=== PATIENT | female | born 1930 | race Caucasian/White ===

== ENCOUNTER → 2017-05-02 | Outpatient (CLI) | payer MEDICARE, OTHER ==
[~2017-05-02] MED LIST: AMLODIPINE BESY10 MG PO; DETROL PO; PRAVACHOL80 MG PO; TEKTURNA150 MG PO; ZETIA PO
--- NOTE | ~2017-05-02 | US5 ---
[facility] A Service of [facility] & [facility] RADIOLOGY TEXT RESULTS PATIENT: MARYLU NÚÑEZ LOCATION: [facility] : 30 UNIT #: [id number] AGE: [address]: Jareth Dunn MD SEX: F ORDER DR: [id number] [facility] [address] [place], [place] [address] [id number] O MR#: [id number] Acc #: [id number] NAME: MARYLU NÚÑEZ : 1930 SEX: F STUDY DATE/TIME: 05/02/2017 9:17 UNIT: [facility] ROOM: STUDY DESCRIPTION: US Abdominal Complete Attending Physician: Jareth Dunn M.D. Ordering Physician: Jareth Dunn M.D. Primary Care Physician: Jareth Dunn M.D. MEDICAL IMAGING REPORT This report is preliminary unless electronic signature is present EXAM Complete abdominal ultrasound 05/02/2017 HISTORY Post-prandial abdominal pain for 1 month. Pain greatest in left upper quadrant. Additional history of diabetes. COMPARISON STUDIES None. FINDINGS Pancreatic tail and head are partially obscured by bowel gas but the visualized pancreas appears unremarkable. Pancreatic duct caliber is within normal limits measuring 2 mm. A simple cyst is demonstrated along the subcapsular margin of the right hepatic lobe measuring 2.2 cm. The liver demonstrates a somewhat coarsened echotexture with diminished acoustic transmission which may reflect changes of mild hepatic steatosis. Liver size is within normal limits, 17 cm in the sagittal plane. Intrahepatic IVC demonstrates normal color flow. Gallbladder demonstrates no abnormal wall thickening or pericholecystic fluid. There is some layering debris dependently within the gallbladder fundus, which may represent tiny non-shadowing stones or sludge. The right kidney measures 10.5 cm in length, with extensive cortical thinning, greatest in the lower pole. Two cysts are seen within the right kidney, 1 in the upper pole measuring up to 3.4 cm and the other in the lower pole measuring about 4.5 cm. Common bile duct caliber is normal, 4 mm. No intrahepatic or biliary ductal dilatation is seen. Abdominal aortic caliber is within normal [facility] A Service of [facility] & [facility] RADIOLOGY TEXT RESULTS PATIENT: MARYLU NÚÑEZ LOCATION: [facility] : 30 UNIT #: [id number] AGE: [address]: Jareth Dunn MD SEX: F ORDER DR: marco without aneurysm, measuring up to 2.4 cm in its mid-segment. Color spectral Doppler flow is documented within the abdominal aorta. The left kidney measures 10.8 cm in length with multifocal areas of cortical thinning and scarring. There is a rounded ISOechoic focus within the left mid-kidney. It is unclear whether this represents residual preserved parenchyma or a solid renal neoplasm. It measures 3.8 x 2.8 x 3 cm. A cyst within the left lower renal pole measures up to 4.7 cm. Another cyst adjacent to it measures 2 cm. Spleen size is within normal limits, 8.7 cm. No ascites is identified. IMPRESSION 1. Rounded echogenic solid-appearing lesion within the left mid-kidney measuring up to 3.8 x 2.8 x 3 cm. It is unclear whether this represents preservation of the patient's normal parenchyma on background cortical atrophy, but solid renal mass cannot be excluded. Consider correlation to MRI abdomen with and without contrast renal mass protocol for further evaluation. 2. There is bilateral renal cortical thinning and areas of cortical scarring, consistent with the appearance of chronic medical renal disease. 3. Bilateral renal cysts. 4. Small quantity echogenic sludge versus gallstones without evidence of cholecystitis or abnormal biliary dilation. 5. Simple hepatic cyst. Features of mild background hepatic steatosis. 6. Portions of the pancreas obscured by bowel gas but the visualized pancreas appears normal. Dictated by... Melvina Alston M.D. THIS IS AN ELECTRONICALLY VERIFIED REPORT Melvina Alston M.D. at 05/03/2017 12:10 PM JERRICA/kiki TD: 05/02/2017 16:39 JOB #: [id number] MEDICAL IMAGING REPORT Page 1 of 1 COPY
--- NOTE | ~2017-05-02 | BD1 ---
[facility] A Service of [facility] & [facility] RADIOLOGY TEXT RESULTS PATIENT: MARYLU NÚÑEZ LOCATION: [facility] : 30 UNIT #: [id number] AGE: [address]: Jareth Dunn MD SEX: F ORDER DR: [id number] [facility] [address] [place], [place] [address] [id number] O MR#: [id number] #: [id number] NAME: MARYLU NÚÑEZ : 1930 SEX: F STUDY DATE/TIME: 05/02/2017 9:12 UNIT: [facility] ROOM: STUDY DESCRIPTION: BD Dexa Bone Dens 1+ Site Attending Physician: Jareth Dunn M.D. Ordering Physician: Jareth Dunn M.D. Primary Care Physician: Jareth Dunn M.D. MEDICAL IMAGING REPORT This report is preliminary unless electronic signature is present EXAM DEXA scan 05/02/2017 HISTORY Status post menopause with no hormone replacement therapy. Removal of 1 ovary. Osteopenia. Arthritis and diabetes. Hypertension with blood pressure medication for 20 years. FINDINGS Bone mineral density in the lumbar spine from L1-L4 was 0.801 g/cm2 which is 2.2 standard deviations below the mean when compared to young adult reference population which is characteristic of osteopenia. Bone mineral density in the left femoral neck was 0.639 g/cm2 which is 1.9 standard deviations below the mean when compared to the young adult reference population which is characteristic of osteopenia. IMPRESSION Bone mineral density in the lumbar spine and left hip characteristic of osteopenia. Dictated by... Gunnar Callahan M.D. THIS IS AN ELECTRONICALLY VERIFIED REPORT Gunnar Callahan M.D. at 05/03/2017 7:28 AM JORDAN/kusum TD: 05/02/2017 11:44 JOB #: [id number] MEDICAL IMAGING REPORT Page 1 of 1 COPY
== END | disposition home or self-care (01) ==
LOC: CWCC 08:47
DX: Z13.820 Encounter for screening for osteoporosis (principal); Z78.0 Asymptomatic menopausal state; Z96.652 Presence of left artificial knee joint; N28.89 Other specified disorders of kidney and ureter; N31.9 Neuromuscular dysfunction of bladder, unspecified; M85.89 Other specified disorders of bone density and structure, multiple sites; N28.1 Cyst of kidney, acquired; K82.9 Disease of gallbladder, unspecified; K76.89 Other specified diseases of liver; K76.0 Fatty (change of) liver, not elsewhere classified
CPT/HCPCS: 76700; 77080

== ENCOUNTER → 2017-05-14 | Outpatient (CLI) | payer MEDICARE, OTHER ==
--- NOTE | ~2017-05-14 | MR2 ---
[facility] A Service of [facility] RADIOLOGY TEXT RESULTS PATIENT: MARYLU NÚÑEZ LOCATION: [facility] ACC #: [id number] : 30 UNIT #: [id number] AGE: [address]: Jareth Dunn MD SEX: F ORDER DR: [id number] [facility] [address] [place], [place] [address] [id number] O MR#: [id number] #: [id number] NAME: MARYLU NÚÑEZ. : 1930 SEX: F STUDY DATE/TIME: 05/14/2017 8:48 UNIT: [facility] ROOM: STUDY DESCRIPTION: MR Abdomen WWo Cont Attending Physician: Jareth Dunn M.D. Referring Physician: Jareth Dunn M.D. Ordering Physician: Jareth Dunn M.D. Primary Care Physician: Jareth Dunn M.D. MRI CENTER REPORT This report is preliminary unless electronic signature is present. EXAM MRI abdomen with and without contrast INDICATIONS Indeterminant left renal mass on previous ultrasound. Observation for renal mass. PROCEDURE Multiplanar, multisequence MR imaging of the abdomen prior to and following 16 mL of MultiHance. COMPARISON Ultrasound from 05/02/2017 FINDINGS ABDOMEN WITHOUT CONTRAST: Liver measures 17.5 cm in length. Diffuse hepatic steatosis. There are scattered benign cysts in the liver; largest is in the left hepatic lobe and measures 1.7 cm. Spleen has normal signal. Adrenal glands and pancreas are unremarkable. There is sludge in the gallbladder. There is adenomyomatosis at the fundus of the gallbladder. There are a few small stones in the gallbladder. No evidence for active inflammation. Common duct is nondilated. Large hiatal hernia. Bowel loops nondilated. Multiple bilateral renal cysts. Largest on the right is at the lower pole and measures 5.2 cm and largest on the left is in the lower pole and measures 4.6 cm. ABDOMEN WITH CONTRAST: No enhancing renal mass. No abnormal enhancement in the abdomen. [facility] A Service of [facility] RADIOLOGY TEXT RESULTS PATIENT: MARYLU NÚÑEZ LOCATION: [facility] : 30 UNIT #: [id number] AGE: [address]: Jareth Dunn MD SEX: F ORDER DR: Atherosclerotic irregularity of the abdominal aorta. IMPRESSION 1. Bilateral renal cysts but no evidence for an enhancing renal mass. 2. Hepatic steatosis. 3. Sludge and small stones in the gallbladder as well as focal adenomyomatosis at the fundus of the gallbladder. No evidence for acute inflammation. 4. Large hiatal hernia. Dictated by... Diaz Madera M.D. THIS IS AN ELECTRONICALLY VERIFIED REPORT Diaz Madera M.D. at 05/16/2017 7:15 AM EED/joe TD: 05/14/2017 16:04 JOB #: [id number] MRI CENTER REPORT Page 1 of 1 COPY
[2017-05-14 07:45] LABS: POC - CREATININE 0.89 mg/dL (0.44-1.03); POC - GFR >60.0 mL/min (>60)
== END | disposition home or self-care (01) ==
LOC: CMRI 07:13
PROVIDERS: Family Medicine
DX: N28.89 Other specified disorders of kidney and ureter (principal); N28.1 Cyst of kidney, acquired; K76.0 Fatty (change of) liver, not elsewhere classified; K80.20 Calculus of gallbladder without cholecystitis without obstruction; K82.8 Other specified diseases of gallbladder; K44.9 Diaphragmatic hernia without obstruction or gangrene
CPT/HCPCS: 74183; 82565; A9577